=== PATIENT | male | born 1995 | race Caucasian/White ===

== ENCOUNTER 2016-12-07 21:35 | Emergency (ER) | payer SELFPAY ==
[~2016-12-07] VITALS: Ht 177.8 cm; Wt 117.9 kg
[~2016-12-07 21:35] MED LIST: NO REPORTABLE MEDS
--- NOTE | 2016-12-07 21:42 | NUR ---
PT AMBULATORY TO ER BED 10. C/O LT SIDED HEADACHE W/ N/V SINCE YESTERDAY S/P HITTING HEAD. PT STATES BOUTS OF FEELING THAT HE IS OUT OF IT AND UNABLE TO RECALL WHAT HAPPEN. ALSO AT NIGHT TIME HE WAS C/O HEADACHE W/ N/V BUT UNABLE TO RECALL. ALSO WAS TIRED AT WORK. PT HAS [employer] HELPER. [id number]. AWAITING MD SIMMONS.
--- NOTE | 2016-12-07 22:12 | NUR ---
[employer] QA ANALYST AT BEDSIDE FOR EVAL.
[2016-12-07] MEDS ORDERED: ONDANSETRON 4 MG TAB.RAPDIS ONE (22:19)
--- NOTE | 2016-12-07 22:22 | NUR ---
PT TO RADIOLOGY FOR HEAD CT SCAN VIA WHEELCHAIR.
[2016-12-07] MEDS ORDERED: ONDANSETRON 4 MG TAB.RAPDIS SL ONE (22:30)
--- NOTE | 2016-12-07 23:04 | NUR ---
Patient discharged to home in stable condition. Written and verbal after care instructions given. Patient verbalizes understanding of instruction.
[2016-12-07 23:05] VITALS: BP 136/76
== END 2016-12-07 23:06 | disposition home or self-care (01) ==
LOC: ER 21:40
DX: S09.90XA Unspecified injury of head, initial encounter (principal); F17.200 Nicotine dependence, unspecified, uncomplicated; W19.XXXA Unspecified fall, initial encounter; Y93.89 Activity, other specified; Y92.89 Other specified places as the place of occurrence of the external cause; Y99.8 Other external cause status
CPT/HCPCS: 70450-TC; A4606; Q0162; Z7610